=== PATIENT | female | born 1965 | race Caucasian/White ===

== ENCOUNTER 2022-11-27 13:14 | Inpatient (IN) | payer MEDICARE ==
[~2022-11-27] VITALS: Ht 152.4 cm; Wt 54.4 kg
[2022-11-27 13:29] VITALS: BP_SYST 123
[2022-11-27] MEDS ORDERED: cefTRIAXone 500 MG in D5W 50 ML IV ONE (13:30)
[2022-11-27] MEDS ORDERED: NS 1000 ML IV.SOLN IV ONE (13:30)
[2022-11-27 14:06] LABS: BASOPHILS % (AUTO) 1.1 % (0.0-2.0); EOSINOPHILS % (AUTO) 0.2 % (0.0-4.0); HEMATOCRIT 33.4 % (36-48); HEMOGLOBIN 10.9 g/dL (12.0-16.0); LYMPHOCYTES # (AUTO) 0.3 K/uL (1.0-5.5); LYMPHOCYTES % (AUTO) 24.7 % (20.5-51.5); MEAN CORPUSCULAR HEMOGLOBIN 29 pg (27-31); MEAN CORPUSCULAR HGB CONC 33 % (32-36); MEAN CORPUSCULAR VOLUME 89 fL (79.0-98.0); MONOCYTES # (AUTO) 0.3 K/uL (0.0-1.0); MONOCYTES % (AUTO) 21.1 % (1.7-9.3); RED BLOOD CELL COUNT(AUTO) 3.77 MIL/uL (4.2-6.2); RED CELL DISTRIBUTION WIDTH 16.8 % (9.0-15.0)
[2022-11-27] MEDS ORDERED: cefTRIAXone 250 MG VIAL ONE (14:06)
[2022-11-27 14:16] LABS: ANION GAP 9 (5-15); CALCIUM 8.3 mg/dL (8.4-11.0); CHLORIDE 99 mmol/L (98-107); CREATININE 1.04 mg/dL (0.55-1.30); GFR AFRICAN AMERICAN 70 mL/min (>90); GLUCOSE 105 mg/dL (70-99); UREA NITROGEN, BLOOD 28 mg/dL (8-21)
[2022-11-27 14:25] LABS: WHITE BLOOD COUNT (AUTO) 1.4 K/uL (4.8-10.8)
[2022-11-27 14:26] LABS: NEUTROPHILS # (AUTO) 0.7 K/uL (1.8-7.7); PLATELET COUNT (AUTO) 24 K/uL (130-430)
[2022-11-27 14:35] LABS: ALANINE AMINOTRANSFERASE 0 U/L (12-78); ASPARTATE AMINOTRANSFERASE 29 U/L (10-37); TOTAL BILIRUBIN 0.5 mg/dL (0.0-1.0)
[2022-11-27 15:02] LABS: BILIRUBIN,URINE NEGATIVE (NEGATIVE); BLOOD, URINE 1+ (NEGATIVE); CLARITY/URINE CLOUDY (CLEAR); COLOR,URINE YELLOW (YELLOW); GLUCOSE,URINE NEGATIVE (NEGATIVE); KETONES,URINE NEGATIVE (NEGATIVE); LEUKOCYTE ESTERASE ,URINE 2+ (NEGATIVE); NITRITE, URINE NEGATIVE (NEGATIVE); PH,URINE 7.5 (5.0-8.0); PROTEIN URINE 2+ (NEGATIVE); UROBILINOGEN,URINE 0.2 (0.2-1.0)
[2022-11-27 15:10] LABS: NEUTROPHILS % (AUTO) 52.9 % (40.0-70.0)
[2022-11-27 15:21] LABS: BACTERIA,URINE MANY /HPF (None Seen)
[2022-11-27] MEDS ORDERED: NACL 0.9% 1,000 ML IV ONE (23:15)
[2022-11-27] MEDS ORDERED: DEXTROSE 50% JECT 50 ML DISP.SYRIN IVP PRN (23:30)
[2022-11-27] MEDS ORDERED: GLUCOSE (DEXTROSE) ORAL GEL -Adults PO PRN (23:30)
[2022-11-27] MEDS ORDERED: INSULIN REGULAR, HUMAN 100 UNITS/ML, 3 ML VIAL (humuLIN R) SUBCUT PRN (23:30)
[2022-11-27] MEDS ORDERED: D5W 1,000 ML IV PRN (23:30)
[2022-11-28] VITALS (23 sets, daily range): BP systolic 86–140
[2022-11-28] MEDS ORDERED: NOREPINEPHRINE BITARTRATE 4 MG in D5W 246 ML IV PRN (01:00)
[2022-11-28] MEDS ORDERED: NOREPINEPHRINE 4 MG/4 ML VIAL IV ONE (02:06)
[2022-11-28] MEDS ORDERED: DEXTROSE 50% JECT 50 ML DISP.SYRIN IVP PRN (07:45)
[2022-11-28] MEDS ORDERED: INSULIN LISPRO SLIDING SCALE 100 UNITS/ML, 3 ML VIAL (humaLOG) SUBCUT PRN (07:45)
[2022-11-28] MEDS ORDERED: MAGNESIUM SULFATE 50 ML IV PRN (07:45)
[2022-11-28] MEDS ORDERED: ENOXAPARIN SODIUM 40 MG/0.4 ML SYRINGE SUBCUT SCH (07:45)
[2022-11-28] MEDS ORDERED: MORPHINE 2 MG/ML INJ. SYRINGE IVP PRN ×2 (07:45)
[2022-11-28] MEDS ORDERED: ONDANSETRON HCL 4 MG/2 ML VIAL IVP PRN (07:45)
[2022-11-28] MEDS ORDERED: POTASSIUM CHLORIDE 20 MEQ TAB.PRT.SR PO PRN (07:45)
[2022-11-28] MEDS ORDERED: ACETAMINOPHEN 325 MG TABLET PO PRN ×2 (07:45)
[2022-11-28] MEDS ORDERED: DOCUSATE SODIUM 100 MG CAPSULE PO PRN (07:45)
[2022-11-28] MEDS ORDERED: NALOXONE HCL 0.4 MG/ML AMP (NARCAN) IVP PRN ×2 (07:45)
[2022-11-28] MEDS ORDERED: MUPIROCIN 2% TOPICAL OINTMENT 22 GM NS PRN (07:45)
[2022-11-28] MEDS ORDERED: ZOLPIDEM TARTRATE 5 MG TABLET PO PRN (07:45)
[2022-11-28] MEDS ORDERED: LORazepam 2 MG/ML VIAL IVP PRN (07:45)
[2022-11-28] MEDS ORDERED: LIP40 PO (08:10)
[2022-11-28] MEDS ORDERED: FERR236T3 PO (08:10)
[2022-11-28] MEDS ORDERED: HYDR-3927 PO (08:10)
[2022-11-28] MEDS ORDERED: SER100 PO (08:10)
[2022-11-28] MEDS ORDERED: METH-797 PO (08:10)
[2022-11-28] MEDS ORDERED: METF-379 PO (08:10)
[2022-11-28] MEDS ORDERED: PRO40 PO (08:10)
[2022-11-28] MEDS ORDERED: ASCO500T20 PO (08:10)
[2022-11-28] MEDS ORDERED: PRO20 PO (08:10)
[2022-11-28 08:31] LABS: HEMATOCRIT 34.2 % (36-48); HEMOGLOBIN 11.2 g/dL (12.0-16.0); MEAN CORPUSCULAR HEMOGLOBIN 29 pg (27-31); MEAN CORPUSCULAR HGB CONC 33 % (32-36); MEAN CORPUSCULAR VOLUME 89 fL (79.0-98.0); RED BLOOD CELL COUNT(AUTO) 3.85 MIL/uL (4.2-6.2); RED CELL DISTRIBUTION WIDTH 17.1 % (9.0-15.0); WHITE BLOOD COUNT (AUTO) 2.4 K/uL (4.8-10.8)
[2022-11-28 08:42] LABS: PLATELET COUNT (AUTO) 32 K/uL (130-430)
[2022-11-28] MEDS ORDERED: ASCORBIC ACID 500 MG TABLET PO ONE (09:30)
[2022-11-28] MEDS ORDERED: FERROUS SULFATE 325 MG TABLET.DR PO ONE (09:30)
[2022-11-28 10:57] LABS: BAND % (MANUAL) 4 % (0-6); BASOPHILS % (MANUAL) 0 % (0-2); EOSINOPHILS % (MANUAL) 0 % (0-7); LYMPHOCYTES % (MANUAL) 26 % (20-46); MONOCYTES % (MANUAL) 12 % (0-11)
[2022-11-28] MEDS: NACL 0.9% 1,000 ML IV SCH ×3 (11:39→23:53)
[2022-11-28] MEDS ORDERED: PIPERACILLIN/TAZO 3.375/DEX-IS 50 ML IV SCH (12:00)
[2022-11-28] MEDS: metroNIDAZOLE 250 mg/NS 50 ML IV SCH ×2 (15:33→22:05)
[2022-11-28] MEDS ORDERED: POLY30DR OP (16:08)
[2022-11-28] MEDS ORDERED: CALC-823 PO (16:14)
[2022-11-28] MEDS ORDERED: CYAN100010 PO (16:14)
[2022-11-28] MEDS ORDERED: FERR-69 PO (16:14)
[2022-11-28] MEDS: CEFEPIME 2 GM in D5W 100 ML IV SCH (21:10)
[2022-11-28] MEDS: METHADONE HCL 10 MG TABLET PO SCH (21:11)
[2022-11-28] MEDS: PANTOPRAZOLE SODIUM 40 MG TAB PO SCH (21:12)
[2022-11-28] MEDS: QUEtiapine FUMARATE 25 MG TABLET PO SCH (21:12)
[2022-11-29] VITALS (24 sets, daily range): BP systolic 80–164
[2022-11-29 05:36] LABS: BASOPHILS % (AUTO) 0.3 % (0.0-2.0); EOSINOPHILS % (AUTO) 2.1 % (0.0-4.0); HEMOGLOBIN 10.9 g/dL (12.0-16.0); LYMPHOCYTES # (AUTO) 0.5 K/uL (1.0-5.5); LYMPHOCYTES % (AUTO) 29.2 % (20.5-51.5); MEAN CORPUSCULAR HEMOGLOBIN 29 pg (27-31); MEAN CORPUSCULAR HGB CONC 32 % (32-36); MEAN CORPUSCULAR VOLUME 89 fL (79.0-98.0); MONOCYTES # (AUTO) 0.3 K/uL (0.0-1.0); MONOCYTES % (AUTO) 15.9 % (1.7-9.3); NEUTROPHILS % (AUTO) 52.5 % (40.0-70.0); RED BLOOD CELL COUNT(AUTO) 3.82 MIL/uL (4.2-6.2); RED CELL DISTRIBUTION WIDTH 16.7 % (9.0-15.0)
[2022-11-29 05:42] LABS: NEUTROPHILS # (AUTO) 0.9 K/uL (1.8-7.7); PLATELET COUNT (AUTO) 24 K/uL (130-430); WHITE BLOOD COUNT (AUTO) 1.7 K/uL (4.8-10.8)
[2022-11-29 05:45] LABS: TOTAL IRON BIND. CAPACITY 248 ug/dL (250-450)
[2022-11-29 05:55] LABS: ALBUMIN 1.8 g/dL (3.4-4.8); CALCIUM 7.8 mg/dL (8.4-11.0); CREATININE 0.65 mg/dL (0.55-1.30); THYROID STIMULATING HORMONE 0.84 uIu/mL (0.34-4.82); TOTAL BILIRUBIN 0.4 mg/dL (0.0-1.0)
[2022-11-29] MEDS: metroNIDAZOLE 250 mg/NS 50 ML IV SCH ×3 (06:05→21:58)
[2022-11-29] MEDS ORDERED: KCL 20 mEq in 100 mL (PREMIX) 100 ML IV ONE ×4 (06:45→12:45)
[2022-11-29 07:10] LABS: INR 1.2 (0.8-1.2); PROTHROMBIN TIME 11.9 SECS (9.5-12.5)
[2022-11-29] MEDS: CEFEPIME 2 GM in D5W 100 ML IV SCH ×2 (09:00→20:37)
[2022-11-29] MEDS: ATORVASTATIN 20 MG TABLET PO SCH (09:09)
[2022-11-29] MEDS: FLUoxetine HCL 10 MG CAPSULE (PROzac) PO SCH (09:09)
[2022-11-29] MEDS: METHADONE HCL 10 MG TABLET PO SCH ×2 (09:12→20:38)
[2022-11-29] MEDS: PANTOPRAZOLE SODIUM 40 MG TAB PO SCH ×2 (09:13→20:38)
[2022-11-29 10:56] LABS: RETICULOCYTE COUNT 0.5 % (0.5-1.5)
[2022-11-29] MEDS ORDERED: MAGNESIUM SULFATE 4 GM in D5W 250 ML IV ONE (13:00)
[2022-11-29] MEDS ORDERED: TBO-FILGRASTIM 480 MCG/0.8 ML SYRINGE SUBCUT ONE (14:30)
[2022-11-29] MEDS: POTASSIUM CHLORIDE 20 MEQ/PKT PACKET PO SCH ×2 (15:02→18:48)
[2022-11-29] MEDS: NACL 0.9% 1,000 ML IV SCH ×2 (15:44→23:49)
[2022-11-29] MEDS: QUEtiapine FUMARATE 25 MG TABLET PO SCH (20:38)
[2022-11-30] VITALS (36 sets, daily range): BP systolic 94–141
[2022-11-30 05:09] LABS: BASOPHILS % (AUTO) 0.3 % (0.0-2.0); EOSINOPHILS # (AUTO) 0.1 K/uL (0.0-0.4); EOSINOPHILS % (AUTO) 1.3 % (0.0-4.0); HEMATOCRIT 33.4 % (36-48); HEMOGLOBIN 10.7 g/dL (12.0-16.0); LYMPHOCYTES # (AUTO) 0.8 K/uL (1.0-5.5); LYMPHOCYTES % (AUTO) 15.1 % (20.5-51.5); MEAN CORPUSCULAR HEMOGLOBIN 29 pg (27-31); MEAN CORPUSCULAR HGB CONC 32 % (32-36); MEAN CORPUSCULAR VOLUME 91 fL (79.0-98.0); MONOCYTES # (AUTO) 0.6 K/uL (0.0-1.0); MONOCYTES % (AUTO) 11.3 % (1.7-9.3); NEUTROPHILS # (AUTO) 3.6 K/uL (1.8-7.7); RED BLOOD CELL COUNT(AUTO) 3.69 MIL/uL (4.2-6.2); RED CELL DISTRIBUTION WIDTH 18.2 % (9.0-15.0)
[2022-11-30 05:27] LABS: CALCIUM 8.3 mg/dL (8.4-11.0); CREATININE 0.82 mg/dL (0.55-1.30)
[2022-11-30 05:29] LABS: PLATELET COUNT (AUTO) 27 K/uL (130-430)
[2022-11-30] MEDS: metroNIDAZOLE 250 mg/NS 50 ML IV SCH ×3 (06:18→23:07)
[2022-11-30] MEDS ORDERED: NOREPINEPHRINE 4 MG/4 ML VIAL IV ONE (09:00)
[2022-11-30] MEDS ORDERED: ASCORBIC ACID 500 MG TABLET PO SCH (09:00)
[2022-11-30] MEDS ORDERED: FERROUS SULFATE 325 MG TABLET.DR PO SCH (09:00)
[2022-11-30] MEDS: METHADONE HCL 10 MG TABLET PO SCH ×2 (09:03→22:58)
[2022-11-30] MEDS: ATORVASTATIN 20 MG TABLET PO SCH (09:03)
[2022-11-30] MEDS: FLUoxetine HCL 10 MG CAPSULE (PROzac) PO SCH (09:03)
[2022-11-30] MEDS: PANTOPRAZOLE SODIUM 40 MG TAB PO SCH ×2 (09:04→23:00)
[2022-11-30 09:06] LABS: FOLATE (FOLIC ACID) 12.2 ng/mL (>3.0)
[2022-11-30] MEDS: CEFEPIME 2 GM in D5W 100 ML IV SCH ×2 (09:19→23:00)
[2022-11-30] MEDS ORDERED: ALBUMIN HUMAN 25% 100 ML IV ONE (10:30)
[2022-11-30] MEDS: VANCOMYCIN HCL ORAL SOLUTION 125 MG/5 ML, 150 ML GT SCH ×3 (15:55→23:07)
[2022-11-30] MEDS: NACL 0.9% 1,000 ML IV SCH ×2 (17:21→23:01)
[2022-11-30] MEDS: QUEtiapine FUMARATE 25 MG TABLET PO SCH (22:58)
[2022-12-01] VITALS (7 sets, daily range): BP systolic 104–142
[2022-12-01] MEDS: metroNIDAZOLE 250 mg/NS 50 ML IV SCH (06:14)
[2022-12-01] MEDS: NACL 0.9% 1,000 ML IV SCH ×2 (06:15→16:15)
[2022-12-01] MEDS: VANCOMYCIN HCL ORAL SOLUTION 125 MG/5 ML, 150 ML GT SCH ×4 (08:33→21:33)
[2022-12-01] MEDS: CEFEPIME 2 GM in D5W 100 ML IV SCH ×2 (08:34→21:33)
[2022-12-01] MEDS: ATORVASTATIN 20 MG TABLET PO SCH (08:35)
[2022-12-01] MEDS: METHADONE HCL 10 MG TABLET PO SCH ×2 (08:36→21:32)
[2022-12-01] MEDS: PANTOPRAZOLE SODIUM 40 MG TAB PO SCH ×2 (08:36→21:32)
[2022-12-01] MEDS: FLUoxetine HCL 10 MG CAPSULE (PROzac) PO SCH (08:36)
[2022-12-01 09:20] LABS: BASOPHILS % (AUTO) 0.4 % (0.0-2.0); EOSINOPHILS % (AUTO) 0.8 % (0.0-4.0); HEMATOCRIT 33.1 % (36-48); HEMOGLOBIN 10.4 g/dL (12.0-16.0); LYMPHOCYTES # (AUTO) 0.8 K/uL (1.0-5.5); LYMPHOCYTES % (AUTO) 16.7 % (20.5-51.5); MEAN CORPUSCULAR HEMOGLOBIN 29 pg (27-31); MEAN CORPUSCULAR HGB CONC 32 % (32-36); MEAN CORPUSCULAR VOLUME 91 fL (79.0-98.0); MONOCYTES # (AUTO) 0.3 K/uL (0.0-1.0); MONOCYTES % (AUTO) 6.9 % (1.7-9.3); NEUTROPHILS # (AUTO) 3.4 K/uL (1.8-7.7); NEUTROPHILS % (AUTO) 75.2 % (40.0-70.0); RED BLOOD CELL COUNT(AUTO) 3.63 MIL/uL (4.2-6.2); RED CELL DISTRIBUTION WIDTH 17.3 % (9.0-15.0); WHITE BLOOD COUNT (AUTO) 4.5 K/uL (4.8-10.8)
[2022-12-01 09:32] LABS: CALCIUM 8.5 mg/dL (8.4-11.0); CREATININE 0.67 mg/dL (0.55-1.30)
[2022-12-01 09:37] LABS: ALBUMIN 2.1 g/dL (3.4-4.8); TOTAL BILIRUBIN 0.5 mg/dL (0.0-1.0)
[2022-12-01 09:38] LABS: PLATELET COUNT (AUTO) 32 K/uL (130-430)
[2022-12-01] MEDS: QUEtiapine FUMARATE 25 MG TABLET PO SCH (21:31)
== END 2022-12-02 01:25 | disposition short-term general hospital (02) | DRG 871 ==
LOC: SED 13:14 → STU 23:02 → SIC 11-28 01:39 → STU 11-30 21:31
PROVIDERS: ADMIT General Practice; ATTEND General Practice
PROC: 05HY33Z Insertion of Infusion Device into Upper Vein, Percutaneous Approach (ICD-10-PCS; principal; 2022-11-29)
PROC: B54NZZA Ultrasonography of Left Upper Extremity Veins, Guidance (ICD-10-PCS; 2022-11-29)
DX: A41.9 Sepsis, unspecified organism (principal); I21.4 Non-ST elevation (NSTEMI) myocardial infarction; R65.21 Severe sepsis with septic shock; R53.2 Functional quadriplegia; J18.9 Pneumonia, unspecified organism; N39.0 Urinary tract infection, site not specified; E44.0 Moderate protein-calorie malnutrition; E87.20 Acidosis, unspecified; D61.818 Other pancytopenia; A04.72 Enterocolitis due to Clostridium difficile, not specified as recurrent; E87.6 Hypokalemia; D69.6 Thrombocytopenia, unspecified; D70.8 Other neutropenia; F03.90 Unspecified dementia, unspecified severity, without behavioral disturbance, psychotic disturbance, mood disturbance, and anxiety; F31.9 Bipolar disorder, unspecified; E78.5 Hyperlipidemia, unspecified; E11.9 Type 2 diabetes mellitus without complications; Z20.822 Contact with and (suspected) exposure to COVID-19; D64.9 Anemia, unspecified; Z74.01 Bed confinement status; Z88.2 Allergy status to sulfonamides; Z88.8 Allergy status to other drugs, medicaments and biological substances; Z91.040 Latex allergy status; Z79.899 Other long term (current) drug therapy; Z99.3 Dependence on wheelchair; Z89.611 Acquired absence of right leg above knee; Z87.11 Personal history of peptic ulcer disease; Z87.891 Personal history of nicotine dependence; Z68.23 Body mass index [BMI] 23.0-23.9, adult
CPT/HCPCS: 36415; 71045; 80048; 80053; 80061; 81000; 82272; 82607; 82728; 82746; 82962; 83540; 83550; 83605; 83735; 83880; 84443; 84484; 85007; 85025; 85027; 85044; 85610-TC; 86480; 87040; 87045-TC; 87081; 87086; 87101; 87230-TC; 89055; 93005; 93306; 96374; 99285; G0378; J0692; J0696; J1447; J2543; J3475; J3480; J3490; J7060